=== PATIENT | female | born 1995 | race African-American/Black ===

== ENCOUNTER 2019-02-09 14:00 | Emergency (ER) | payer MEDICAID ==
[~2019-02-09] VITALS: Ht 160 cm; Wt 58.0 kg
[2019-02-09 16:25] VITALS: BP 120/71
== END 2019-02-09 17:46 | disposition home or self-care (01) ==
LOC: ER 14:00
DX: J30.9 Allergic rhinitis, unspecified (principal)
CPT/HCPCS: 99282